=== PATIENT | male | born 1970 | race African-American/Black ===

== ENCOUNTER 2018-10-08 10:55 | Emergency (ER) | payer OTHER ==
[~2018-10-08] VITALS: Ht 177.8 cm; Wt 85.3 kg
--- NOTE | 2018-10-08 11:11 | NUR ---
BIBSELF FOR DIARRHEA SINCE LAST NIGHT; PT AAOX4, PT TO BED 9, PT ON MONITOR, NAD NOTED, ORACIO PEREZ
[2018-10-08] MEDS ORDERED: EMTR1TAB18 PO (11:14)
[2018-10-08 11:50] LABS: BASOPHILS % (AUTO) 0.2 % (0.0-2.0); EOSINOPHILS % (AUTO) 0.2 % (0.0-6.0); HEMATOCRIT 43 % (39-51); HEMOGLOBIN 14.3 g/dL (13.5-17.5); LYMPHOCYTES # (AUTO) 0.5 /CMM (0.8-4.8); LYMPHOCYTES % (AUTO) 5.5 % (20.0-44.0); MEAN CORPUSCULAR HGB CONC 33 g/dl (31.0-36.0); MEAN CORPUSCULAR VOLUME 85 fL (80-96); MONOCYTES # (AUTO) 0.4 /CMM (0.1-1.30); MONOCYTES % (AUTO) 4.3 % (2.0-12.0); NEUTROPHILS # (AUTO) 7.9 /CMM (1.8-8.9); NEUTROPHILS % (AUTO) 89.8 % (43.0-81.0); PLATELET COUNT (AUTO) 273 /CMM (150-450); WHITE BLOOD COUNT (AUTO) 8.8 K/uL (4.3-11.0)
[2018-10-08] MEDS ORDERED: ONDANSETRON HCL/PF 4 MG/2 ML VIAL ONE (11:50)
[2018-10-08] MEDS ORDERED: IV NS 0.9% 1,000 ML BAG IV ONE (12:00)
[2018-10-08] MEDS ORDERED: ONDANSETRON HCL/PF 4 MG/2 ML VIAL IVP ONE (12:00)
[2018-10-08 12:01] LABS: CALCIUM, SERUM 8.3 mg/dL (8.5-10.1); CREATININE 1.6 mg/dL (0.6-1.3); POTASSIUM 3.8 mmol/L (3.5-5.1)
[2018-10-08 12:07] LABS: ALBUMIN 2.9 g/dL (3.4-5.0); BILIRUBIN,DIRECT 0.1 mg/dL (0.0-0.2); BILIRUBIN,TOTAL 0.7 mg/dL (0.2-1.0); TOTAL PROTEIN, SERUM 6.9 g/dL (6.4-8.2)
--- NOTE | 2018-10-08 12:33 | NUR ---
Patient discharged to home in stable condition. Written and verbal after care instructions given. Patient verbalizes understanding of instruction .IV removed. Catheter intact and site benign. Pressure and 4x4 applied to site. No bleeding noted.
[2018-10-08 12:35] VITALS: BP 122/60
[2018-10-13] MEDS ORDERED: CIPR-262 PO (11:06)
[2018-10-13] MEDS ORDERED: METR500T PO (11:06)
== END 2018-10-08 12:36 | disposition home or self-care (01) ==
LOC: ER 10:56
DX: N17.9 Acute kidney failure, unspecified (principal); R19.7 Diarrhea, unspecified; R11.0 Nausea; R10.9 Unspecified abdominal pain; E86.0 Dehydration
CPT/HCPCS: 36415; 80048; 80076; 83690; 85025; 96361; 96374; 99283; J2405; J7030

== ENCOUNTER 2018-10-10 12:22 | Inpatient (IN) | payer MEDICAID, OTHER ==
[~2018-10-10] VITALS: Ht 177.8 cm; Wt 85.5 kg
[~2018-10-10 12:22] MED LIST: EMTR1TAB18 PO
--- NOTE | 2018-10-10 12:22 | NUR ---
PT BIBSELF FOR BLOOD IN STOOL, PT WAS SEEN HERE 2 DAYS AGO, PT AAOX4, PT ON MONITOR, PT TO BED 13, NAD NOTED, VSS, PENDING MD EPREZ
[2018-10-10 13:17] LABS: BASOPHILS % (AUTO) 0.3 % (0.0-2.0); HEMATOCRIT 45 % (39-51); HEMOGLOBIN 14.9 g/dL (13.5-17.5); LYMPHOCYTES # (AUTO) 0.7 /CMM (0.8-4.8); LYMPHOCYTES % (AUTO) 11.5 % (20.0-44.0); MEAN CORPUSCULAR HGB CONC 34 g/dl (31.0-36.0); MEAN CORPUSCULAR VOLUME 86 fL (80-96); MONOCYTES # (AUTO) 0.5 /CMM (0.1-1.30); MONOCYTES % (AUTO) 8.7 % (2.0-12.0); NEUTROPHILS % (AUTO) 79.5 % (43.0-81.0); PLATELET COUNT (AUTO) 269 /CMM (150-450); RED BLOOD CELL COUNT(AUTO) 5.21 MIL/uL (4.5-6.0); WHITE BLOOD COUNT (AUTO) 6.3 K/uL (4.3-11.0)
[2018-10-10 13:24] LABS: CALCIUM, SERUM 8.4 mg/dL (8.5-10.1); CREATININE 1.9 mg/dL (0.6-1.3); POTASSIUM 3.5 mmol/L (3.5-5.1)
[2018-10-10 13:29] LABS: ALBUMIN 2.8 g/dL (3.4-5.0); BILIRUBIN,DIRECT 0.2 mg/dL (0.0-0.2); BILIRUBIN,TOTAL 0.7 mg/dL (0.2-1.0); TOTAL PROTEIN, SERUM 7.2 g/dL (6.4-8.2)
[2018-10-10] MEDS ORDERED: IV NS 0.9% 1,000 ML BAG IV ONE (13:30)
--- NOTE | 2018-10-10 14:20 | NUR ---
GAVE MOVE SHEET TO ADMITING TO AUTHORIZE ADMISSION
[2018-10-10] MEDS ORDERED: NEBI5TAB8 PO (14:23)
[2018-10-10] MEDS ORDERED: TAMS-12 PO (14:23)
[2018-10-10] MEDS ORDERED: GUAI600T53 PO (14:23)
[2018-10-10] MEDS ORDERED: CHLO25TA2 PO (14:23)
[2018-10-10] MEDS ORDERED: METRONIDAZOLE 500MG/ NS 100ML 100 ML IV ONE (14:30)
[2018-10-10] MEDS ORDERED: LEVOFLOXACIN 750 MG /D5W 150ML 150 ML IV ONE (14:30)
[2018-10-10] MEDS ORDERED: EMTR1TAB18 PO (14:36)
[2018-10-10] MEDS ORDERED: CABE0.5T2 PO (14:36)
[2018-10-10] MEDS ORDERED: ATOR40TA PO (14:36)
[2018-10-10] MEDS ORDERED: TAMO20TA4 PO (14:36)
[2018-10-10] MEDS ORDERED: Z GUARD REMEDY 2 OZ OINT TP PRN (15:00)
[2018-10-10] MEDS ORDERED: ACETAMINOPHEN 325 MG TABLET PO PRN (15:00)
[2018-10-10] MEDS ORDERED: ZOLPIDEM TARTRATE 5 MG TABLET PO PRN (15:00)
[2018-10-10] MEDS ORDERED: ONDANSETRON HCL/PF 4 MG/2 ML VIAL IVP PRN (15:00)
[2018-10-10] MEDS ORDERED: LEVOFLOXACIN 500 MG /D5W 100ML 500 MG/100 ML PIGGYBACK IV ONE (15:00)
[2018-10-10] MEDS ORDERED: MORPHINE SULFATE INJ 2 MG/ML DISP.SYRIN IV PRN (15:00)
[2018-10-10] MEDS ORDERED: MAGNESIUM HYDROXIDE 30 ML UDC PO PRN (15:00)
[2018-10-10 15:30] LABS: OCCULT BLOOD STOOL POSITIVE (NEGATIVE)
--- NOTE | 2018-10-10 16:04 | NUR ---
JAYME TGIVEN TO DARLENE HEARD FOR SAMANTA; PT WILL BE TRANSPORTED TO 3RD FLOOR-MS
--- NOTE | 2018-10-10 16:15 | NUR ---
PT. BROUGHT UP TO RM.ORIENTED TO ENVIRONMENT.MADE COMFORTABLE.VALUABLES TAKEN TO [facility].VS TAKEN AND STABLE,HAS TEMP ELEVATION.INSTRUCTED TO HAVE NURSE CHECK WHEN HE HAS STOOL.
[2018-10-10 17:00] VITALS: BP 111/67
--- NOTE | 2018-10-10 17:00 | NUR ---
STATES HE JUST PASSED SOME LIQ. STOOL WITH DARK BLOOD NOT OBSERVED BY RN.
[2018-10-10] MEDS: IV D5/0.45 NACL 1,000 ML IV PRN (17:28)
[2018-10-10] MEDS: TAMOXIFEN CITRATE 10 MG TABLET PO SCH (17:30)
--- NOTE | 2018-10-10 19:21 | NUR ---
STATES PASSING SMALL AMT. OF URINE SINCE BLOODY STOOLS HAVE STARTED AND SOME PAIN ,BUT DECLINES PAIN MED AT THIS TIME.JUST PASSED MOD. AMT. BLOOD WITH BM.SOMEWHAT BRIGHT IN COLOR.
--- NOTE | 2018-10-10 19:30 | NUR ---
MS RN OPENING NOTES Received patient A/O x4, awake on semi-Witt's position on bed. With patent peripheral IV line RAC #18, with D5 1/2 NS @ 125ml/hr infusing well as ordered. No complaints/pain at this time. Still with blood stool noted. Call light within easy reach. Will continue to monitor accordingly.
[2018-10-10 20:00] VITALS: BP 105/67
[2018-10-10 20:38] VITALS: BP 105/67
[2018-10-10] MEDS: METRONIDAZOLE 500MG/ NS 100ML 500 MG in PREMIX 1 EA IV SCH (20:38)
[2018-10-10] MEDS ORDERED: ATORVASTATIN 40 MG TABLET PO SCH (22:00)
[2018-10-11] MEDS: HYDROCODONE/APAP 5/325MG 1 EACH TABLET PO PRN (00:18)
[2018-10-11] MEDS: MAG HYDROX/AL HYDROX/SIMETH 30 ML UDC PO PRN ×2 (00:19→16:18)
[2018-10-11] MEDS: IV D5/0.45 NACL 1,000 ML IV PRN ×2 (02:23→20:14)
[2018-10-11] MEDS: METRONIDAZOLE 500MG/ NS 100ML 500 MG in PREMIX 1 EA IV SCH ×3 (04:16→21:07)
[2018-10-11 06:46] LABS: BASOPHILS % (AUTO) 0.2 % (0.0-2.0); EOSINOPHILS % (AUTO) 0.2 % (0.0-6.0); HEMATOCRIT 43 % (39-51); HEMOGLOBIN 14.1 g/dL (13.5-17.5); LYMPHOCYTES % (AUTO) 15.3 % (20.0-44.0); MEAN CORPUSCULAR HGB CONC 33 g/dl (31.0-36.0); MEAN CORPUSCULAR VOLUME 85 fL (80-96); MONOCYTES # (AUTO) 0.6 /CMM (0.1-1.30); MONOCYTES % (AUTO) 9.4 % (2.0-12.0); NEUTROPHILS # (AUTO) 4.7 /CMM (1.8-8.9); NEUTROPHILS % (AUTO) 74.9 % (43.0-81.0); PLATELET COUNT (AUTO) 260 /CMM (150-450); RED BLOOD CELL COUNT(AUTO) 5.01 MIL/uL (4.5-6.0); WHITE BLOOD COUNT (AUTO) 6.2 K/uL (4.3-11.0)
--- NOTE | 2018-10-11 06:52 | NUR ---
MS RN CLOSING NOTES Patient asleep, easily awaken, on semi-Witt's position on bed. On RA, no SOB/respiratory distress noted. No complaints of pain or discomfort noted. All due meds given, no ASE noted. All nursing needs attended. Call light within easy reach. Endorsed to the next shift.
[2018-10-11 07:09] LABS: CALCIUM, SERUM 7.7 mg/dL (8.5-10.1); CREATININE 1.8 mg/dL (0.6-1.3); MAGNESIUM 2.1 mg/dL (1.8-2.4); PHOSPHORUS 2.9 mg/dL (2.5-4.9); POTASSIUM 3.5 mmol/L (3.5-5.1)
[2018-10-11 07:10] LABS: ALBUMIN 2.3 g/dL (3.4-5.0); BILIRUBIN,DIRECT 0.1 mg/dL (0.0-0.2); BILIRUBIN,TOTAL 0.7 mg/dL (0.2-1.0); TOTAL PROTEIN, SERUM 6.4 g/dL (6.4-8.2)
[2018-10-11 08:00] VITALS: BP 104/57
--- NOTE | 2018-10-11 08:00 | NUR ---
MS RN NOTES PATIENT IN BED RESTING. ALERT, ORIENTED X3. PATIENT NPO EXCEPT MEDICATIONS. PATIENT NOTED HAVING LOOSE STOOLS WITH MINIMAL RED BLOOD. PATIENT AMBULATORY. PERIPHERAL IV INTACT PATEN. WILL CONTINUE TO MONITOR.
[2018-10-11] MEDS: PANTOPRAZOLE 40 MG TABLET.DR PO SCH (08:29)
[2018-10-11] MEDS: TAMOXIFEN CITRATE 10 MG TABLET PO SCH (09:00)
[2018-10-11 16:00] VITALS: BP 100/60
[2018-10-11] MEDS: LEVOFLOXACIN 250 MG /D5W 50 ML 250 MG in PREMIX 1 EA IV SCH (16:19)
--- NOTE | 2018-10-11 18:25 | NUR ---
MS RN NOTES PATIENT IN BED RESTING. PATIENT ALERT, ORIENTED X4. NO SOB OR ACUTE DISTRESS NOTED. PATIENT NOW NOTED WITH BROWN LOOSE STOOLS. PATIENT ON CLEAR LIQUIDS, REPORTING SOME DISCOMFORT AFTER EATING. NO ACUTE CHANGES NOTED DURING SHIFT. PERIPHERAL IV INTACT PATENT. WILL ENDORSE CARE TO PM SHIFT.
--- NOTE | 2018-10-11 19:30 | NUR ---
RN NOTES RECEIVED PT. AWAKE ON BED, A/OX4, AMBULATORY, PATIENT PERSONAL BELONGING (WALLET AND HIS CAR AMEZQUITA) WELL HIS OWN MEDICATION ODESSFY...PATIENT TOOK HIS CAR AMEZQUITA AND GAVE BACK HIS WALLET, DENIES PAIN, NO SOB, CALL LIGHT WITHIN REACH, [id number], CONTINUE TO MONITOR
[2018-10-11 20:10] VITALS: BP 111/66
--- NOTE | 2018-10-11 20:45 | NUR ---
RN NOTES PAGED BLANQUITA GARZON AND INFORMED HER THAT PATIENT HAS HIS OWN MEDICATION, HIS HIV MEDICATION AT BEDSIDE, BLANQUITA BUSTILLO NP , WAITING FOR HER TO CALL BACK
[2018-10-12] MEDS: MAG HYDROX/AL HYDROX/SIMETH 30 ML UDC PO PRN (00:57)
[2018-10-12] MEDS: HYDROCODONE/APAP 5/325MG 1 EACH TABLET PO PRN ×2 (00:57→20:55)
--- NOTE | 2018-10-12 01:04 | NUR ---
RN NOTES COMPLAINED OF ABDOMINAL PAIN AND DYSPEPSIA- MAALOX 30 ML PO GIVEN AND PATIENT ASKED FOR PAIN MEDICATION- NORCO 5/325MG PO GIVEN ORDERED, V/S STABLE
[2018-10-12] MEDS: METRONIDAZOLE 500MG/ NS 100ML 500 MG in PREMIX 1 EA IV SCH ×3 (05:10→20:27)
--- NOTE | 2018-10-12 06:32 | NUR ---
RN NOTES SLEEPING BUT AROUSABLE, DENIES PAIN, NO SOB, MORNING CARE RENDERED, CALL LIGHT WITHIN REACH, [id number], PT. NEEDS ATTENDED
[2018-10-12] MEDS: IV D5/0.45 NACL 1,000 ML IV PRN ×2 (06:39→16:56)
[2018-10-12 07:35] LABS: BASOPHILS % (AUTO) 0.4 % (0.0-2.0); EOSINOPHILS % (AUTO) 0.8 % (0.0-6.0); HEMATOCRIT 42 % (39-51); HEMOGLOBIN 13.6 g/dL (13.5-17.5); LYMPHOCYTES % (AUTO) 17.9 % (20.0-44.0); MEAN CORPUSCULAR HGB CONC 33 g/dl (31.0-36.0); MEAN CORPUSCULAR VOLUME 85 fL (80-96); MONOCYTES # (AUTO) 0.7 /CMM (0.1-1.30); MONOCYTES % (AUTO) 12.1 % (2.0-12.0); NEUTROPHILS % (AUTO) 68.8 % (43.0-81.0); PLATELET COUNT (AUTO) 273 /CMM (150-450); RED BLOOD CELL COUNT(AUTO) 4.91 MIL/uL (4.5-6.0); WHITE BLOOD COUNT (AUTO) 5.8 K/uL (4.3-11.0)
[2018-10-12 07:57] LABS: ALBUMIN 2.2 g/dL (3.4-5.0); BILIRUBIN,DIRECT 0.1 mg/dL (0.0-0.2); BILIRUBIN,TOTAL 0.7 mg/dL (0.2-1.0); CREATININE 1.9 mg/dL (0.6-1.3); MAGNESIUM 2.1 mg/dL (1.8-2.4); PHOSPHORUS 2.9 mg/dL (2.5-4.9); POTASSIUM 3.4 mmol/L (3.5-5.1); TOTAL PROTEIN, SERUM 6.1 g/dL (6.4-8.2)
[2018-10-12 08:00] VITALS: BP 109/64
--- NOTE | 2018-10-12 08:00 | NUR ---
RECEIVED PATIENT IN BED, AWAKE. ALERT AND ORIENTED X4. DENIES ANY C/O PAIN NOR DISCOMFORT AT THIS TIME. ATE BREAKFAST WITHOUT COMPLAINS OF DISCOMFORT. CALL LIGHT WITHIN REACH. NEEDS ATTENDED. RT AC GAUGE #20 INTACT AND PATENT WITHOUT S/S OF COMPLICATIONS OBSERVED.
[2018-10-12] MEDS: PANTOPRAZOLE 40 MG TABLET.DR PO SCH (08:37)
[2018-10-12] MEDS: TAMOXIFEN CITRATE 10 MG TABLET PO SCH (09:30)
[2018-10-12] MEDS ORDERED: POTASSIUM CHLORIDE 20 MEQ POWDER PACKET PO SCH ×2 (12:30)
[2018-10-12] MEDS ORDERED: POTASSIUM CHLORIDE 10 MEQ TABLET.SA PO SCH (13:30)
[2018-10-12 14:44] LABS: APPEARANCE,URINE CLEAR (CLEAR); BILIRUBIN,URINE NEGATIVE (NEGATIVE); BLOOD, URINE 2+ Ery/uL (NEGATIVE); COLOR,URINE YELLOW (YELLOW); KETONES,URINE NEGATIVE (NEGATIVE); LEUKOCYTE ESTERASE ,URINE NEGATIVE (NEGATIVE); NITRITE, URINE POSITIVE (NEGATIVE); PROTEIN,URINE NEGATIVE (NEGATIVE); UGLUCOSE NEGATIVE (NEGATIVE); UROBILINOGEN,URINE 0.2 EU/dL (0.2)
[2018-10-12 14:52] LABS: URINE TOTAL PROTEIN 20.1 mg/dL (0-11.9)
[2018-10-12 15:29] LABS: BACTERIA,URINE Few /HPF (None Seen); SQUAMOUS EPITHELIAL CELL,UR Rare /HPF (None Seen); WBC,URINE 0-2 /HPF (0-3)
[2018-10-12 15:47] LABS: EOSINOPHIL,URINE None Seen
[2018-10-12 16:00] VITALS: BP 114/70
[2018-10-12] MEDS: LEVOFLOXACIN 250 MG /D5W 50 ML 250 MG in PREMIX 1 EA IV SCH (16:48)
[2018-10-12] MEDS: ODEFSEY PO SCH (17:52)
--- NOTE | 2018-10-12 18:40 | NUR ---
RN medsurburton opening notes Received Pt from morning nurse. Pt is alert and oriented X4. Pt's family at the bed side. Respiration is normal and unlabored. No SOB. Pt denies any pain or discomfort at this time. No nausea or vomiting. IV sites at L Forearm # 20g is intact, patent and infusing D5 1/2 NS @ 125 ml/hr. Safety precautions is maintained. Instructed to call. Bed at low position, brakes on, side rails upX2, and call light is within reach. Will continue to monitor and assists needs.
--- NOTE | 2018-10-12 18:56 | NUR ---
MS RN NOTES: PATIENT ALERT AND ORIENTED X4. STILL WITH LOOSE BM, BROWN IN COLOR. DENIES ANY C/O PAIN NOR DISCOMFORT AT THIS TIME. ALL DUE MEDS GIVEN OBI WELL W/O ASE NOTED. REMAINS STABLE AT THIS TIME. ABLE TO VERBALIZE NEEDS. CALL LIGHT WITHIN REACH.
--- NOTE | 2018-10-12 20:54 | NUR ---
RN medsurg notes Administered [place] 5mg/325mg 1 Tab PO for lower abdomen pain 7/10 on pain scale as Pt request. Will continue to monitor.
--- NOTE | 2018-10-12 23:50 | NUR ---
RN medsurg notes Administered Ambien 5 mg as ordered for sleeping per pt request. Will continue to monitor.
[2018-10-13] MEDS: MAG HYDROX/AL HYDROX/SIMETH 30 ML UDC PO PRN ×2 (00:02→15:51)
--- NOTE | 2018-10-13 01:00 | NUR ---
RN medsur notes Pt is resting in bed comfortably. Awaken easily. Pt denies any pain or discomfort at this time. NO SOB. Will continue to monitor.
[2018-10-13] MEDS: IV D5/0.45 NACL 1,000 ML IV PRN ×2 (03:20→13:26)
[2018-10-13] MEDS: METRONIDAZOLE 500MG/ NS 100ML 500 MG in PREMIX 1 EA IV SCH ×2 (04:57→13:25)
[2018-10-13 06:27] LABS: BASOPHILS % (AUTO) 0.4 % (0.0-2.0); EOSINOPHILS % (AUTO) 0.6 % (0.0-6.0); HEMATOCRIT 42 % (39-51); HEMOGLOBIN 13.9 g/dL (13.5-17.5); LYMPHOCYTES # (AUTO) 1.1 /CMM (0.8-4.8); LYMPHOCYTES % (AUTO) 19.3 % (20.0-44.0); MEAN CORPUSCULAR HGB CONC 33 g/dl (31.0-36.0); MEAN CORPUSCULAR VOLUME 84 fL (80-96); MONOCYTES # (AUTO) 0.8 /CMM (0.1-1.30); MONOCYTES % (AUTO) 14.4 % (2.0-12.0); NEUTROPHILS # (AUTO) 3.9 /CMM (1.8-8.9); NEUTROPHILS % (AUTO) 65.3 % (43.0-81.0); PLATELET COUNT (AUTO) 290 /CMM (150-450); RED BLOOD CELL COUNT(AUTO) 4.94 MIL/uL (4.5-6.0); WHITE BLOOD COUNT (AUTO) 5.9 K/uL (4.3-11.0)
--- NOTE | 2018-10-13 06:40 | NUR ---
RN medsurg closing notes Pt is alert and oriented X4. Pt is resting in bed comfortably. Respiration is normal. NO SOB. Pt denies any pain or discomfort at this time. IV sites at L forearm is intact, patent and infusing well D5 1/2 NS @ 125 ml/hr. Routine meds given and all needs met. Pt tolerated well. VS is stable. Safety precautions is maintained. Bed at low position and call light is within reach. Will endorse to morning nurse for SAMANTA.
[2018-10-13 06:41] LABS: ALBUMIN 2.2 g/dL (3.4-5.0); BILIRUBIN,TOTAL 0.8 mg/dL (0.2-1.0); CREATININE 1.9 mg/dL (0.6-1.3); PHOSPHORUS 2.3 mg/dL (2.5-4.9); POTASSIUM 3.1 mmol/L (3.5-5.1); TOTAL PROTEIN, SERUM 6.2 g/dL (6.4-8.2)
[2018-10-13 06:45] LABS: ALBUMIN 2.3 g/dL (3.4-5.0); BILIRUBIN,DIRECT 0.2 mg/dL (0.0-0.2); BILIRUBIN,TOTAL 0.7 mg/dL (0.2-1.0); TOTAL PROTEIN, SERUM 6.3 g/dL (6.4-8.2)
[2018-10-13 07:07] LABS: *BASOS 1 % (Not Estab.); *BASOS, ABSOLUTE 0.1 x10E3/uL (0.0-0.2); *COMMENTS Note: (.); *EOS 0 % (Not Estab.); *HCT 43.7 % (37.5-51.0); *HGB 14.5 g/dL (13.0-17.7); *IMMATURE GRANULOCYTES 1 % (Not Estab.); *LYMPHOCYTES 20 % (Not Estab.); *LYMPHS, ABSOLUTE 1.4 x10E3/uL (0.7-3.1); *MCH 27.8 pg (26.6-33.0); *MCHC 33.2 g/dL (31.5-35.7); *MCV 84 fL (79-97); *MONOCYTES 10 % (Not Estab.); *MONOS, ABSOLUTE 0.7 x10E3/uL (0.1-0.9); *NEUTROPHILS 68 % (Not Estab.); *NEUTROPHILS, ABSOLUTE 5.1 x10E3/uL (1.4-7.0); *PLT 343 x10E3/uL (150-450); *RBC 5.22 x10E6/uL (4.14-5.80); *RDW 15.2 % (12.3-15.4)
--- NOTE | 2018-10-13 07:30 | NUR ---
MS RN OPENING NOTES RECEIVED PT IN BED, AWAKE, A/O X4. TOLERATING RA, WITH NO ACUTE RESPIRATORY DISTRESS. PT DENIES ANY PAIN OR DISCOMFORT. PT DENIES ANY QUESTIONS AND CONCERNS. PT'S GOAL TODAY IS HE WANTS TO GO HOME, STATING HE'S BEEN READY TO GO. IVF D5 1/2 NS AT 125ML/HR TO LFA G20, INTACT AND FLUID INFUSING WELL. PT KEPT COMFORTABLE. CALL LIGHT AND FLUID KEPT WITHIN REACH. PT'S BED IN LOWEST, LOCKED POSITION WITH SR X2. WILL CONTINUE PLAN OF CARE.
[2018-10-13 07:58] VITALS: BP 138/79
[2018-10-13] MEDS: PANTOPRAZOLE 40 MG TABLET.DR PO SCH (08:00)
[2018-10-13] MEDS: TAMOXIFEN CITRATE 10 MG TABLET PO SCH (08:38)
--- NOTE | 2018-10-13 09:15 | NUR ---
MS RN NOTES SEEN AND EVALUATED BY SK EARLIER THIS MORNING, WITH NO NEW ORDERS NOTED. PT AWARE. PT STATED HE WANTS TO GO HOME. PT AWARE WAITING FOR GI PODIATRIC PHYSICIAN WYATT AND /LUNA FOR CLEARANCE TO GO HOME. WILL CONTINUE TO MONITOR.
[2018-10-13] MEDS ORDERED: POTASSIUM CHLORIDE 10 MEQ TABLET.SA PO ONE (10:00)
[2018-10-13] MEDS ORDERED: CIPR-262 PO (11:06)
[2018-10-13] MEDS ORDERED: METR500T PO (11:06)
[2018-10-13 11:07] LABS: *% CD 4 POS. LYMPH 33.3 % (30.8-58.5); *% CD 8 POS. LYMPH 45.3 % (12.0-35.5); *ABSOLUTE CD 4 HELPER 466 /uL (359-1519); *ABSOLUTE CD 8 SUPPRESSOR 634 /uL (109-897); *CD4/CD8 RATIO 0.74 (0.92-3.72)
[2018-10-13] MEDS ORDERED: K PHOS NEUTRAL 250 MG TABLET PO ONE (13:00)
[2018-10-13] MEDS: LEVOFLOXACIN 250 MG /D5W 50 ML 250 MG in PREMIX 1 EA IV SCH (15:06)
[2018-10-13] MEDS: ODEFSEY PO SCH (17:00)
--- NOTE | 2018-10-13 18:25 | NUR ---
MS BUNDLE CLERK NOTES PT SEEN AND EVALUATED BY DR CARRASCO, DR DORMAN, DR BANSAL THIS MORNING AND CLEARED PT FOR TODAY'S DISCHARGE. ASSEMBLER CARDS AND ANNOUNCEMENTS/MAXI CAME AROUND 1600, ALSO CLEARED PT TO GO HOME. F/U APPOINTMENTS REMINDED THE PT AND PER MD'S ORDERS; PT AWARE. DISCUSSED DISCAHRGE INSTURCTIONS TO PT. INVENTORY LIST SIGNED BY PT, ALSO WITH WALLET FROM [facility]. ALL BELONGINGS ACCOUNTED FOR. MEDICATION FROM PHARMACY (1)PILL, WAS TAKEN BY PT YESTERDAY, NO MEDICATION WAS PICKED UP FROM PHARMACY; PT AWARE. PIV TO LFA REMOVED, APPLIED DRY DRESSING. SKIN INTACT, NO PICTURES TAKEN TO FILE IN THE CHART. ALL NEEDS AND CARE PROVIDED. PT DENIES ANY PAIN OR DISCOMFORT AT THE TIME OF DISCHARGE. WELL QUESTIONS AND CONCERNS. PT LEFT AT 1710. DENZEL/CAITIE AND MD/SK AWARE OF DISCHARGE.
[2018-10-14 14:15] LABS: PTH, INTACT 14 pg/mL (15-65)
[2018-10-15 14:13] LABS: *ANCA ATYPICAL p-ANCA <1:20 titer (Neg:<1:20); *ANCA CYTOPLASMIC (C-ANCA) <1:20 titer (Neg:<1:20); *ANCA PERINUCLEAR (P-ANCA) <1:20 titer (Neg:<1:20)
[2018-10-15 17:12] LABS: *ANCANTIMYELOPEROXIDASE (MPO) <9.0 U/mL (0.0-9.0); *ANCANTIPROTEINASE 3 (PR-3) AB <3.5 U/mL (0.0-3.5)
[2018-10-16 11:08] LABS: *SPE A/G RATIO 0.7 (0.7-1.7); *SPE ALBUMIN 2.4 g/dL (2.9-4.4); *SPE ALPHA-1-GLOBULIN 0.4 g/dL (0.0-0.4); *SPE ALPHA-2-GLOBULIN 1.1 g/dL (0.4-1.0); *SPE BETA GLOBULIN 0.8 g/dL (0.7-1.3); *SPE GLOBULIN, TOTAL 3.5 g/dL (2.2-3.9); *SPE M-SPIKE Not Observed g/dL (Not Observed); *SPEGAMMA GLOBULIN 1.2 g/dL (0.4-1.8)
[2018-10-17 10:10] LABS: COMPLEMENT C3, SERUM 112 mg/dL (82-167); COMPLEMENT C4, SERUM 35 mg/dL (14-44)
[2018-10-19 16:08] LABS: *HIV-1 RNA BY PCR 50 copies/mL (.); *HIV-1 log10 RNA 1.699 (.)
== END 2018-10-13 17:05 | disposition home or self-care (01) | DRG 249 ==
LOC: ER 12:31 → MED 15:26
PROVIDERS: ADMIT Student in an Organized Health Care Education/Training Program; ATTEND Student in an Organized Health Care Education/Training Program
DX: A09 Infectious gastroenteritis and colitis, unspecified (principal); N17.0 Acute kidney failure with tubular necrosis; J90 Pleural effusion, not elsewhere classified; K83.1 Obstruction of bile duct; E44.1 Mild protein-calorie malnutrition; R16.0 Hepatomegaly, not elsewhere classified; E78.5 Hyperlipidemia, unspecified; J98.11 Atelectasis; N18.9 Chronic kidney disease, unspecified; R74.0 Nonspecific elevation of levels of transaminase and lactic acid dehydrogenase [LDH]; Z68.27 Body mass index [BMI] 27.0-27.9, adult; R91.1 Solitary pulmonary nodule
CPT/HCPCS: 36415; 71045-TC; 76700-TC; 80048-TC; 80053-TC; 80076-TC; 81000-TC; 82272-TC; 82550-TC; 82570-TC; 83520; 83735-TC; 83970; 84100-TC; 84155; 84155-TC; 84165; 84300-TC; 85025-TC; 85652-TC; 86140-TC; 86256; 86360; 87045-TC; 87081-TC; 87086-TC; 87177; 87209; 87536; 89055; A4216; G0378; J1956; J3490; J7030

== ENCOUNTER 2019-01-25 14:40 | Emergency (ER) | payer MEDICAID ==
[~2019-01-25] VITALS: Ht 177.8 cm; Wt 81.6 kg
[~2019-01-25 14:40] MED LIST changes: +CABE0.5T2 PO; +CIPR-262 PO; +METR500T PO; +TAMO20TA4 PO
[2019-01-25 15:12] VITALS: BP 137/76
== END 2019-01-25 15:44 | disposition home or self-care (01) ==
LOC: ER 14:42
DX: B02.9 Zoster without complications (principal); E78.00 Pure hypercholesterolemia, unspecified; Z98.890 Other specified postprocedural states; Z60.2 Problems related to living alone